=== PATIENT | female | born 1945 | race Hispanic/Latino ===

== ENCOUNTER 2017-01-21 14:31 | Outpatient (CLI) | payer MEDICARE, OTHER ==
--- NOTE | 2017-01-22 15:29 | Mammography Report ---
BILATERAL DIGITAL SCREENING MAMMOGRAM with CAD: 01/21/17 14:31:00 CLINICAL: Routine screening. COMPARISON:01/16/16 FINDINGS: The breasts are almost entirely fatty.Bilateral benign calcifications. No mass, architectural distortion or suspicious calcifications. IMPRESSION: No mammographic evidence of malignancy. BI-RADS CATEGORY: 2 -- Benign RECOMMENDATION: Routine mammographic screening in one year. COMMENT: Patient follow-up letters are generated by our [employer] application.
== END 2017-01-21 14:32 | disposition home or self-care (01) ==
LOC: SPVWC 14:31
PROVIDERS: ATTEND Internal Medicine
DX: Z12.31 Encounter for screening mammogram for malignant neoplasm of breast (principal)
CPT/HCPCS: 77067; G0202

== ENCOUNTER 2018-01-22 13:26 | Outpatient (CLI) | payer MEDICARE, OTHER ==
--- NOTE | 2018-01-24 12:28 | Mammography Report ---
BILATERAL DIGITAL SCREENING MAMMOGRAM with CAD: 01/22/18 13:26:00 CLINICAL: Routine screening. COMPARISON:01/21/17 FINDINGS: The breasts are almost entirely fatty. No mass, architectural distortion or suspicious calcifications. IMPRESSION: No mammographic evidence of malignancy. BI-RADS CATEGORY: 1 - - Negative RECOMMENDATION: Routine mammographic screening in one year. COMMENT: Patient follow-up letters are generated by our [employer] application.
== END 2018-01-22 13:27 | disposition home or self-care (01) ==
LOC: SPVWC 13:26
PROVIDERS: ATTEND Internal Medicine
DX: Z12.31 Encounter for screening mammogram for malignant neoplasm of breast (principal)
CPT/HCPCS: 77067

== ENCOUNTER 2019-01-27 16:25 | Outpatient (CLI) | payer MEDICARE, OTHER ==
--- NOTE | 2019-01-28 09:31 | Mammography Report ---
BILATERAL DIGITAL SCREENING MAMMOGRAM with CAD: 01/27/19 16:25:00 CLINICAL: Routine screening. COMPARISON:01/22/18 FINDINGS: The breasts are almost entirely fatty. No mass, architectural distortion or suspicious calcifications. IMPRESSION: No mammographic evidence of malignancy. BI-RADS CATEGORY: 1 - - Negative RECOMMENDATION: Routine mammographic screening in one year. COMMENT: Patient follow-up letters are generated by our [employer] application.
== END 2019-01-27 16:26 | disposition home or self-care (01) ==
LOC: SPVWC 16:25
PROVIDERS: ATTEND Internal Medicine
DX: Z12.31 Encounter for screening mammogram for malignant neoplasm of breast (principal)
CPT/HCPCS: 77067

== ENCOUNTER 2021-04-03 11:24 | Outpatient (CLI) | payer MEDICARE, OTHER ==
--- NOTE | 2021-04-03 16:41 | Mammography Report ---
DIGITAL DIAGNOSTIC MAMMOGRAM WITH CAD CONVENTIONAL, 04/03/2021 CLINICAL INFORMATION / INDICATION: Right breast lump for one week. ABNORMAL BREAST FINDING N64.59 TECHNIQUE: Digital bilateral mammographic imaging was performed. Spot compression views were obtaine d. This examination was interpreted with the benefit of Computer-aided Detection analysis. COMPARISON: 01/27/2019, 01/22/2018 FINDINGS: Breast Density: There are scattered areas of fibroglandular density. No dominant mass, suspicious calcifications or architectural distortion in either breast. IMPRESSION: No mammographic evidence of malignancy. A limited right breast ultrasound focusing on the site of the reported palpable abnormality is recommended for complete evaluation. Follow up recommendation: Ultrasound BI-RADS Category 0: Incomplete. Needs additional imaging evaluation and/or prior mammograms for christie drew. A "normal" or negative report should not discourage follow up or biopsy of a clinically significant f inding. A written summary of these findings will be mailed to the patient. The patient will be entered into a mammography reporting system which will generate a reminder letter for the patient's next appointmen t at the appropriate interval. According to the [employer], yearly mammograms are recommended starting at age 40 and continuing as long as a woman is in good health. Breast MRI is recommended for women with an serjio roximately 20-25% or greater lifetime risk of breast cancer, including women with a strong family his tory of breast or ovarian cancer and women who have been treated for Hodgkin's disease. Signer Name: Guerrero Brownlee MD Signed: 04/03/2021 4:37 PM Workstation Name: [employer]
== END 2021-04-03 11:25 | disposition home or self-care (01) ==
LOC: SPVWC 11:24
DX: N64.59 Other signs and symptoms in breast (principal); R92.8 Other abnormal and inconclusive findings on diagnostic imaging of breast
CPT/HCPCS: 77066

== ENCOUNTER 2021-04-12 13:02 | Outpatient (CLI) | payer MEDICARE, OTHER ==
--- NOTE | 2021-04-12 13:36 | Ultrasound Report ---
ULTRASOUND BREAST RIGHT LIMITED, 04/12/2021 CLINICAL INFORMATION / INDICATION: Right palpable abnormality earlier this month, no longer palpable. TECHNIQUE: Targeted ultrasound evaluation was performed of the area of interest. COMPARISON: Diagnostic mammogram 04/03/2021 FINDINGS: No abnormalities are seen in the area of palpable concern. IMPRESSION: No sonographic evidence of malignancy. Follow up recommendation: Clinical follow-up if concern recurs BI-RADS Category 1: Negative. A normal or "negative" report should not preclude biopsy or follow-up of a clinically suspicious find ing. Signer Name: Gabriele Hutchinson MD Signed: 04/12/2021 1:31 PM Workstation Name: [facility]
== END 2021-04-12 13:03 | disposition home or self-care (01) ==
LOC: SPVWC 13:02
PROVIDERS: ATTEND Family Medicine
DX: N63.0 Unspecified lump in unspecified breast (principal)

== ENCOUNTER 2022-08-07 13:54 | Outpatient (CLI) | payer MEDICARE, OTHER ==
--- NOTE | 2022-08-08 08:37 | Mammography Report ---
DIGITAL SCREENING MAMMOGRAM WITH TOMOSYNTHESIS WITH CAD, 08/07/2022 CLINICAL INFORMATION / INDICATION: Routine Screening Mammography. 3D SCREENING MAMMO. TECHNIQUE: Digital bilateral 2D and 3D mammography with tomosynthesis was obtained in the craniocauda l and mediolateral oblique projections. Computer-Aided Detection (CAD) analysis was used for interpr etation of this study. COMPARISON: 12/06/2011 through 04/03/2021. FINDINGS: Breast Density: There are scattered areas of fibroglandular density. No dominant mass, suspicious calcifications, or architectural distortion in either breast. There are a few benign calcifications bilaterally. IMPRESSION: No mammographic evidence of malignancy. Follow up recommendation: Routine yearly screening mammogram. BI-RADS Category 2: BENIGN. A "normal" or negative report should not discourage follow up or biopsy of a clinically significant f inding. A written summary of these findings will be mailed to the patient. The patient will be entered into a mammography reporting system which will generate a reminder letter for the patient's next appointmen t at the appropriate interval. The [employer] recommends yearly mammograms starting at age 40 and continuing as l ambar as a woman is in good health. Breast MRI is recommended for women with an approximate 20-25% or greater lifetime risk of breast cancer, including women with a strong family history of breast or ova pardeep cancer or who have been treated for Hodgkin's disease. Signer Name: Osmani Parrish MD Signed: 08/08/2022 8:33 AM Workstation Name: [email or web address]
== END 2022-08-07 13:55 | disposition home or self-care (01) ==
LOC: SPVWC 13:54
PROVIDERS: ATTEND Family Medicine
DX: Z12.31 Encounter for screening mammogram for malignant neoplasm of breast (principal); N64.89 Other specified disorders of breast
CPT/HCPCS: 77063; 77067